=== PATIENT | female | born 1985 | race Caucasian/White ===

== ENCOUNTER 2019-03-15 11:37 | Emergency (ER) | payer SELFPAY ==
[~2019-03-15] VITALS: Ht 167.6 cm; Wt 85.7 kg
[2019-03-15 11:43] VITALS: BP 141/98; PULSE 106; RESP 18; Ht 167.6 cm; Wt 85.7 kg
== END 2019-03-15 13:53 | disposition left against medical advice (07) ==
LOC: E/R 11:37
DX: Z53.21 Procedure and treatment not carried out due to patient leaving prior to being seen by health care provider (principal)